=== PATIENT | female | born 1975 | race Caucasian/White ===

== ENCOUNTER 2023-04-05 11:56 | Emergency (ER) | payer BC ==
[~2023-04-05] VITALS: Ht 167.6 cm; Wt 52.2 kg
[2023-04-05] MEDS ORDERED: ACETAMINOPHEN ES 500 MG TABLET ONE (12:50)
[2023-04-05] MEDS ORDERED: ACETAMINOPHEN ES 500 MG TABLET PO ONE (13:00)
[2023-04-05] MEDS ORDERED: IV NS 0.9% 1,000 ML BAG IV ONE (13:00)
[2023-04-05 13:13] LABS: BASOPHILS % (AUTO) 0.4 % (0.0-2.0); EOSINOPHILS % (AUTO) 0.5 % (0.0-6.0); HEMATOCRIT 36 % (33-45); HEMOGLOBIN 11.9 g/dL (11.5-14.8); LYMPHOCYTES # (AUTO) 0.6 K/uL (0.8-4.8); LYMPHOCYTES % (AUTO) 21.9 % (20.0-44.0); MEAN CORPUSCULAR HEMOGLOBIN 31 PG (26.0-33.0); MEAN CORPUSCULAR HGB CONC 33 g/dl (31.0-36.0); MEAN CORPUSCULAR VOLUME 94 fL (82-100); MONOCYTES # (AUTO) 0.2 K/uL (0.1-1.30); MONOCYTES % (AUTO) 8.1 % (2.0-12.0); NEUTROPHILS % (AUTO) 69.1 % (43.0-81.0); RED BLOOD CELL COUNT(AUTO) 3.81 MIL/uL (4.0-5.2); RED CELL DISTRIBUTION WIDTH 16.2 % (11.5-15.0); WHITE BLOOD COUNT (AUTO) 2.9 K/uL (4.3-11.0)
[2023-04-05 13:26] LABS: ALANINE AMINOTRANSFERASE 167 U/L (12-78); ALBUMIN 4.3 g/dL (3.4-5.0); ALKALINE PHOSPHATASE 160 U/L (46-116); ASPARTATE AMINOTRANSFERASE 357 U/L (15-37); BILIRUBIN,DIRECT 1.9 mg/dL (0.0-0.2); BILIRUBIN,TOTAL 2.9 mg/dL (0.2-1.0); CALCIUM, SERUM 10.2 mg/dL (8.5-10.1); CARBON DIOXIDE 27 mmol/L (21-32); CHLORIDE 92 mmol/L (98-107); GLUCOSE 133 mg/dL (74-106); SODIUM SERUM 134 mmol/L (136-145); TOTAL PROTEIN, SERUM 7.7 g/dL (6.4-8.2); UREA NITROGEN, BLOOD 9 mg/dL (7-18)
[2023-04-05 13:28] LABS: PLATELET COUNT (AUTO) 34 K/uL (150-450)
[2023-04-05 13:35] LABS: LYMPHOCYTES % (MANUAL) 24 % (16-48); MONOCYTES % (MANUAL) 8 % (0-11.0); NEUTROPHILS % (MANUAL) 68 (42-76); PLATELET ESTIMATE DECREASED
[2023-04-05 13:36] LABS: ANISOCYTOSIS 1+
[2023-04-05] MEDS ORDERED: TRAZ-257 PO (14:34)
[2023-04-05] MEDS ORDERED: THIA100T70 PO (14:34)
[2023-04-05] MEDS ORDERED: LEVO112T2 PO (14:34)
[2023-04-05] MEDS ORDERED: VENL150C58 PO (14:34)
[2023-04-05] MEDS ORDERED: FAMO20TA8 PO (14:34)
[2023-04-05] MEDS ORDERED: FOLI0.8T3 PO (14:34)
[2023-04-05 15:18] VITALS: BP 118/65; TEMP 97.9; O2SAT 100
== END 2023-04-05 15:10 | disposition left against medical advice (07) ==
LOC: ER 11:58
DX: K72.00 Acute and subacute hepatic failure without coma (principal); F10.239 Alcohol dependence with withdrawal, unspecified; K70.30 Alcoholic cirrhosis of liver without ascites; E88.89 Other specified metabolic disorders; E87.6 Hypokalemia; E80.6 Other disorders of bilirubin metabolism; D69.6 Thrombocytopenia, unspecified; D72.819 Decreased white blood cell count, unspecified; R74.01 Elevation of levels of liver transaminase levels; E03.9 Hypothyroidism, unspecified; Z88.0 Allergy status to penicillin; Y90.0 Blood alcohol level of less than 20 mg/100 ml; R55 Syncope and collapse
CPT/HCPCS: 99285; 96360; 93005; 71045; 73030; 85025; 80048; 80076; 85007; 36415; 84484; 80320; J7030; G0480